=== PATIENT | male | born 1940 | race Caucasian/White ===

== ENCOUNTER → 2017-07-30 | Outpatient (CLI) | payer MEDICARE, OTHER ==
[~2017-07-30] MED LIST: "\\\"BP MED\\\""; "\\\"STATIN\\\""; ASCO500 PO; ASPI325 PO; Advil200 M1 PO; CHOL10002 PO; LISHYD1012 PO; Simvastatin20 MG PO; Super B Comple150 MG PO
== END ==
LOC: PLD 11:22 → LAB SHORT 11:22
DX: D22.5 Melanocytic nevi of trunk (principal)
CPT/HCPCS: 88305

== ENCOUNTER → 2017-08-12 | Outpatient (CLI) | payer MEDICARE, OTHER | LOC: PLD 09:03 → LAB SHORT 09:03 | DX: L72.0 Epidermal cyst (principal) | CPT/HCPCS: 88304 ==

== ENCOUNTER → 2020-01-06 | Outpatient (CLI) | payer MEDICARE, OTHER ==
[2020-01-07 08:13] LABS: Stool Occult Bld Immuno 1 Negative (NEGATIVE); Stool Occult Bld Immuno 2 Positive (NEGATIVE)
== END | disposition home or self-care (01) ==
LOC: LAB 07:00 → LAB SHORT 07:00 → LAB FUT 12-28 07:50
PROVIDERS: Internal Medicine
DX: D50.9 Iron deficiency anemia, unspecified (principal); E53.8 Deficiency of other specified B group vitamins
CPT/HCPCS: 82274

== ENCOUNTER 2021-03-29 06:12 | Day surgery (SDC) | payer MEDICARE, OTHER ==
[~2021-03-29] VITALS: Ht 175.3 cm; Wt 62.5 kg
[~2021-03-29 06:12] MED LIST changes: +OMEP20ER PO
== END 2021-03-29 08:18 | disposition home or self-care (01) ==
LOC: ORSCSDS 06:12
PROVIDERS: Ophthalmology
PROC: 08RJ3JZ Replacement of Right Lens with Synthetic Substitute, Percutaneous Approach (ICD-10-PCS; principal; 2021-03-29 07:30)
DX: H25.11 Age-related nuclear cataract, right eye (principal); H21.81 Floppy iris syndrome; H52.201 Unspecified astigmatism, right eye; I10 Essential (primary) hypertension; J44.9 Chronic obstructive pulmonary disease, unspecified; I25.10 Atherosclerotic heart disease of native coronary artery without angina pectoris; F17.210 Nicotine dependence, cigarettes, uncomplicated; Z79.82 Long term (current) use of aspirin; Z79.899 Other long term (current) drug therapy
CPT/HCPCS: A9270; J2001; J2250; J3010; J3301; J7040; V2632

== ENCOUNTER → 2021-04-04 | Outpatient (CLI) | payer MEDICARE, OTHER ==
[2021-04-04 09:30] LABS: Stool Occult Bld Immuno 1 Negative (NEGATIVE)
== END | disposition home or self-care (01) ==
LOC: LAB 05:00 → LAB SHORT 05:00
PROVIDERS: Internal Medicine Gastroenterology
DX: D50.9 Iron deficiency anemia, unspecified (principal)
CPT/HCPCS: 82274

== ENCOUNTER 2022-03-26 16:41 | Emergency (ER) | payer MEDICARE, OTHER ==
[~2022-03-26] VITALS: Ht 172.7 cm; Wt 72.6 kg
== END 2022-03-26 18:53 | disposition left against medical advice (07) ==
LOC: ER 16:41
DX: R33.9 Retention of urine, unspecified (principal); Z79.82 Long term (current) use of aspirin; Z79.899 Other long term (current) drug therapy; Z53.21 Procedure and treatment not carried out due to patient leaving prior to being seen by health care provider
CPT/HCPCS: 51702; 51798

== ENCOUNTER 2025-02-06 15:37 | Inpatient (IN) | payer MEDICARE, OTHER ==
[~2025-02-06] VITALS: Ht 172.7 cm; Wt 50.2 kg
[~2025-02-06 15:37] MED LIST changes: +AZIT250 PO; +CEFP200 PO; +KEYTRUDA100 MG/41; +MORP15ER PO; +MORP30 PO; +ONDA4ODT MM; +OXYC10ER PO; +SENN187; +TAMS.4ER PO
[2025-02-06] MEDS ORDERED: Morphine Sulfate 10 MG/ML 1MLSYR IV ONE ×2 (15:55→17:45)
[2025-02-06 16:17] LABS: BASOPHILS ABSOLUTE AUTO 0.07 K/mm3 (0.00-0.23); BASOPHILS PERCENT AUTO 1 % (0-2); EOSINOPHILS ABSOLUTE AUTO 0.33 K/mm3 (0.00-0.68); EOSINOPHILS PERCENT AUTO 4 % (0-6); Hematocrit 34.3 % (37.0-53.0); Hemoglobin 11.3 g/dL (13.5-17.5); IMMATURE GRAN ABSOLUTE AUTO 0.05 K/mm3 (0.00-0.10); IMMATURE GRAN PERCENT AUTO 1 % (0-1); LYMPHOCYTES ABSOLUTE AUTO 0.67 K/mm3 (0.84-5.20); LYMPHOCYTES PERCENT AUTO 9 % (21-46); MONOCYTES ABSOLUTE AUTO 0.78 K/mm3 (0.16-1.47); MONOCYTES PERCENT AUTO 10 % (4-13); Mean Corpuscular HGB Conc 32.9 g/dL (31.5-36.5); Mean Corpuscular Volume 99 fL (80-100); NEUTROPHILS ABSOLUTE AUTO 5.73 K/mm3 (1.96-9.15); NEUTROPHILS PERCENT AUTO 75 % (41-73); NRBC ABSOLUTE 0.00 K/mm3 (0.00-0.02); NRBC Auto 0.0 /100 WBC (0.0-0.2); Platelet Count 168 K/mm3 (150-400); RDW Coefficient Variation 14.1 % (11.7-14.2); RDW Standard Deviation 51.1 fL (35.1-46.3)
[2025-02-06 16:35] LABS: Prothrombin Time Results 11.0 Sec (9.7-11.5)
[2025-02-06 16:36] LABS: Alanine Aminotransfer (ALT/SGP 27.0 U/L (12-78); Albumin, Blood 3.4 g/dL (3.4-5.0); Albumin/Globulin Ratio 1.0 (0.8-1.8); Anion Gap 7.0 mmol/L (3-11); Aspartate Aminotrans (AST/SGOT 30.0 U/L (12-37); Bilirubin, Total 0.3 mg/dL (0.1-1.0); Blood Urea Nitrogen 17.0 mg/dL (8-24); CO2, Blood 28.0 mmol/L (21-32); Calcium, Blood 8.4 mg/dL (8.5-10.1); Chloride, Blood 104.0 mmol/L (98-108); Creatinine, Blood 0.9 mg/dL (0.60-1.20); Globulin, Blood 3.4 g/dL (2.2-4.0); Glucose, Blood 97.0 mg/dL (70-99); Potassium, Blood 4.1 mmol/L (3.5-5.5); Sodium, Blood 135.0 mmol/L (136-145); Total Protein, Blood 6.8 g/dL (6.4-8.2)
[2025-02-06] MEDS ORDERED: LORA.5 PO (16:40)
[2025-02-06] MEDS ORDERED: MORP30 PO (16:41)
[2025-02-06] MEDS ORDERED: Flomax0.4 MG PO (16:49)
[2025-02-06] MEDS ORDERED: MECL25 PO (16:50)
[2025-02-06] MEDS ORDERED: OXYC10TA19 PO (16:50)
[2025-02-06] MEDS ORDERED: Lidocaine 4% 1 Patch TOP ONE (17:15)
[2025-02-06] MEDS ORDERED: Morphine Sulfate 10 MG/ML 1MLSYR IV PRN ×2 (20:10→20:15)
[2025-02-06] MEDS ORDERED: OxyCODONE 5 mg/Acetamin 325 mg TABLET PO PRN (20:10)
[2025-02-06] MEDS ORDERED: Ondansetron HCl 2 MG / ML 2ML Vial IV PRN (20:15)
[2025-02-06] MEDS ORDERED: NS 1,000 ML IV SCH (20:15)
[2025-02-06] MEDS ORDERED: LORazepam 2 MG/ML 1ML Injection IV PRN (20:15)
[2025-02-06] MEDS ORDERED: FLU VACC TS2025(65UP)/MF59C/PF 45 MCG/0.5 ML SYRINGE IM SCH (20:30)
[2025-02-06 22:02] VITALS: BP 195/99
[2025-02-07 02:52] VITALS: BP 150/86
--- NOTE | 2025-02-07 04:35 | NUR ---
ADMIT AND SUMMARY: REPORT RECEIVED FROM MANNY (ENGINEERING EQUIPMENT OPERATOR) AND PT T/F VIA MARY JANE TO ROOM 357 AT 2153. HE'S A/OX4, WAS ORIENTED TO ROOM AND CALL SYSTEM AND IS ABLE TO ENDORSE NEEDS APPROPRIATELY. PT APPEARS MILDLY FORGETFULL AT TIMES BUT ISN'T IMPULSIVE AND REDIRECTS EASILY. ORTHO CX CALLED TO ANSWERING SERVICE FOR R.FEMUR FX AND WAS MADE NPO AT MIDNIGHT FOR POSSIBLE SX REPAIR. HE WAS MEDICATED FOR TOLERABLE RELIEF OF ASSOCIATED PAIN W/IV MORPHINE AND PO PERCOCET PER EMAR. NS WAS COMMENCED AT 100 ML/HR AND HUNTER IS INTACT FOR ACUTE RETENTION, PAIN, LIMITED MOBILITY AND ROM. SCD'S IN PLACE FOR DVT PROPHYLAXIS AND TURN SCHEDULE WAS MAINTAINED FOR SBD PREVENTION. NO ACUTE CHANGES, VSS AND AFEBRILE. WILL REPORT TO DAY RN.
[2025-02-07 07:44] VITALS: BP 155/92
[2025-02-07] MEDS ORDERED: Polyethylene Glycol 3350 17 gm PO PRN (12:25)
[2025-02-07 15:43] VITALS: BP 149/83
--- NOTE | 2025-02-07 17:48 | NUR ---
DR ALU ROUNDING IN ROOM, STATED PT NOT SURGICAL CANDIDATE. WILL PLAN FOR PT AND REHAB. CM WILL BE CONSULTED, PATIENT RECEIVING HOSPICE SERVICES THROUGH [facility], AND HAS PT RECOMMENDATION FOR SNF. PREFERENCE IS [facility]MEN[facility], WOULD APPRECIATE CALL IF NOT PRESENT WHEN CM ROUNDS, IS UNAVAILABLE SATURDAY FROM [id number].
--- NOTE | 2025-02-07 18:34 | NUR ---
SHIFT SUMMARY- PER DR. LAU PATIENT'S HIP FX IS NOT SURGICAL. PLAN IS TO START PT EVALUATION HERE AND THEN DISCHARGE TO REHAB. PT STOIC IN PAIN EVALUATION, PAIN MANAGED PER EMR. PT HAS CATHETER DUE TO PAIN WTIH MOVEMENT.
[2025-02-07 19:45] VITALS: BP 162/84
[2025-02-07] MEDS ORDERED: Docusate Sodium/Senna 1 Tab PO SCH (21:00)
[2025-02-08 03:35] VITALS: BP 185/88
--- NOTE | 2025-02-08 05:06 | NUR ---
SHIFT SUMMARY: PT AOX4, CALLS APPROPRAITLEY AND ABLE TO MAKE NEEDS KNOWN. HUNTER HAVING GOOD OUTPUT. PT HAD LARGE BM THIS EVENING. TOLERATING MEDICATIONS WELL, STATES THE PAIN IN LEG IS IMPROVING. MEDICATED FOR PAIN PER EMR. PT IN BED RESTING, BED IN LOWEST POSITION, CALL LIGHT IN REACH. CONTINUING CARE.
[2025-02-08 05:56] LABS: Hematocrit 33.5 % (37.0-53.0); Hemoglobin 11.3 g/dL (13.5-17.5); Mean Corpuscular HGB Conc 33.7 g/dL (31.5-36.5); Mean Corpuscular Volume 99 fL (80-100); NRBC ABSOLUTE 0.00 K/mm3 (0.00-0.02); NRBC Auto 0.0 /100 WBC (0.0-0.2); Platelet Count 160 K/mm3 (150-400); RDW Coefficient Variation 13.8 % (11.7-14.2); RDW Standard Deviation 50.4 fL (35.1-46.3)
[2025-02-08 06:27] LABS: Albumin, Blood 2.9 g/dL (3.4-5.0); Anion Gap 8 mmol/L (3-11); Blood Urea Nitrogen 13 mg/dL (8-24); CO2, Blood 26 mmol/L (21-32); Calcium, Blood 8.4 mg/dL (8.5-10.1); Chloride, Blood 108 mmol/L (98-108); Creatinine, Blood 0.65 mg/dL (0.60-1.20); Glucose, Blood 80 mg/dL (70-99); Magnesium, Blood 1.9 mg/dL (1.6-2.4); Phosphorus, Blood 2.5 mg/dL (2.5-4.9); Potassium, Blood 3.5 mmol/L (3.5-5.5); Sodium, Blood 138 mmol/L (136-145)
[2025-02-08 07:51] VITALS: BP 170/88
[2025-02-08 15:15] VITALS: BP 158/97
--- NOTE | 2025-02-08 18:34 | NUR ---
SHIFT SUMMARY NO ACUTE CHANGES. A/Ox4, ABLE TO MAKE NEEDS KNOWN AND CALLS APPROPRIATELY. PAIN WELL MANAGED WITH PO MS CONTIN AND MSIR STARTED TODAY PER PT HOME MED REC. PT STILL HAS INCREASED PAIN WITH MOVEMENT BUT TOLERATING WELL. HUNTER CATHETER DC'D PER PT REQUEST AND PROVIDER ORDER. PT URINATING INDEPENDENTLY IN URINAL SINCE REMOVAL OF CATHETER. GOOD ORAL INTAKE. IV FLUIDS DISCONTINUED. PT CURRENTLY RESTING IN BED WITH BED IN LOWEST POSITION AND CALL LIGHT IN REACH. WILL REPORT TO ONCOMING RN/SKIP TRACER ASSUMING CARE OF PT.
[2025-02-08 20:03] VITALS: BP 164/100
[2025-02-08 20:04] VITALS: BP 166/110
--- NOTE | 2025-02-09 04:08 | NUR ---
SHIFT SUMMARY PT IS A&OX4, PLEASANT AND COOPERATIVE WITH CARE. PT IS RECIEVING PAIN MEDICATION PER EMAR FOR R. FEMUR FX. PT REPORTED 6/10 PAIN IN R LEG/HIP. PT HAS BEEN HYPERTENSIVE T/O SHIFT OTHER VSS, TOLERATING PO INTAKE, AND VOIDING APPROPRIATELY. AMBULATES TO BSC WITH 1P AND FWW. PT SLEPT T/O SHIFT WITH EVEN AND UNLABORED RESPIRATIONS, BED IN THE LOWEST POSITION, AND CALL LIGHTIN WITHIN REACH.
[2025-02-09 04:12] VITALS: BP 170/94
[2025-02-09 04:43] VITALS: BP 167/93
[2025-02-09 07:04] VITALS: BP 159/91
[2025-02-09] MEDS ORDERED: ACET500 PO (09:59)
[2025-02-09] MEDS ORDERED: SENN187 PO (10:00)
[2025-02-09] MEDS ORDERED: MIRALAX17 GM PO (10:01)
--- NOTE | 2025-02-09 11:57 | NUR ---
DISCHARGE PT DISCHARGED TO [facility] VIA WHEELCHAIR TRANSPORT. IV REMOVED AND SITE APPEARS WNL. ALL BELONGINGS TAKEN BY PT SON. THIS RN ATTEMPTED TO CONTACT [facility] FOR REPORT AND NO ANSWER, VOICEMAIL LEFT REQUESTING CALL BACK. [facility] LANGUAGE TRANSLATOR NOTIFIED OF AWAITING CALL BACK. TRANSPORTER OBTAINED DISCHARGE PACKET.
--- NOTE | 2025-02-09 18:51 | NUR ---
PALLIATIVE CARE VISIT: CONSULT RECIEVED FOR CANCER, END OF LIFE CARE. REVIEWED MEDICAL RECORD AND SPOKE TO PRIMARY RN, LUCIA PRIOR TO VISIT. PT WAS ON HOSPICE PRIOR TO HOSPITALIZATION BUT WAS REMOVED FROM SERVICE DUE TO ADMISSION. 1000: MET WITH PT IN ROOM. SON IS PRESENT AND PT CONSENTS TO HIM BEING PRESENT FOR OUR CONVERSATION. DISCUSSED SYMPTOM MANAGEMENT WITH PT. HE REPORTS PAIN IS WELL MANAGED. HE DENIES NAUSEA, COSNTIPATION, SOB. GOC: PT STATES HE DOES NOT WANT TO GO TO REHAB BUT HIS FAMILY IS PUSHING HIM TO GO. HE STATES HE WILL GO TO MAKE THEM HAPPY. WE DISCUSSED SETTING A TIMELINE A COMPROMISE. PT AGREED TWO WEEKS WOULD BE ADEQUATE TIME TO DETERMINE IF HE WAS IMPROVING OR NOT AND THEN HE COULD RE-EVALUATE WHETHER HE WANTED TO GO BACK HOME ON HOSPICE OR CONTINUE REHAB. 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 WE DISCUSSED POTENTIAL FOR HIS FRACTURE NOT HEALING.
== END 2025-02-09 11:39 | DRG 536 ==
LOC: ER 15:37 → MEDS 20:12 → SURS 20:12 → MEDS 21:58
PROVIDERS: Emergency Medicine; Internal Medicine; ADMIT Student in an Organized Health Care Education/Training Program
DX: S72.114A Nondisplaced fracture of greater trochanter of right femur, initial encounter for closed fracture (principal); I10 Essential (primary) hypertension; Z66 Do not resuscitate; E78.5 Hyperlipidemia, unspecified; K21.9 Gastro-esophageal reflux disease without esophagitis; C67.9 Malignant neoplasm of bladder, unspecified; F17.210 Nicotine dependence, cigarettes, uncomplicated; I25.10 Atherosclerotic heart disease of native coronary artery without angina pectoris; I71.40 Abdominal aortic aneurysm, without rupture, unspecified; Z88.8 Allergy status to other drugs, medicaments and biological substances; Z79.899 Other long term (current) drug therapy; Z79.891 Long term (current) use of opiate analgesic; Z88.0 Allergy status to penicillin; Z79.2 Long term (current) use of antibiotics; Z95.5 Presence of coronary angioplasty implant and graft; Z90.49 Acquired absence of other specified parts of digestive tract; Z23 Encounter for immunization; Z98.890 Other specified postprocedural states; W07.XXXA Fall from chair, initial encounter; Y93.89 Activity, other specified
CPT/HCPCS: 36415; 51702; 72192; 73502; 80053; 80069; 83735; 85025; 85027; 85610; 96374; 97110; 97161; 97530; 99285-25; A9270; J2270; J7030